=== PATIENT | female | born 1965 | race African-American/Black ===

== ENCOUNTER → 2018-03-01 | Outpatient (CLI) | payer OTHER ==
[~2018-03-01] MED LIST: AUGMENTIN 875875 MG PO; PROMETHAZINE-C120 ML PO
== END ==
LOC: CAT 14:37 → PUL 14:37
DX: Z13.6 Encounter for screening for cardiovascular disorders (principal); E78.00 Pure hypercholesterolemia, unspecified

== ENCOUNTER → 2018-03-17 | Outpatient (CLI) | payer OTHER ==
[~2018-03-17] MED LIST changes: +CO Q-10100 MG PO; +CRESTOR10 MG PO; +NEURONTIN 300300 M1 PO; +PROBIOTIC1 EAC1 PO; +TURMERIC500 M2 PO
--- NOTE | 2018-05-11 15:57 | PFR/MVV ---
[facility] [place] [address] [place] [address] PULMONARY FUNCTION MVV/REPORT Name: DEREK KEARNS Room #: REG [facility] Ubaldo.#: [id number] Admission: 03/17/18 Attend Phys: Stevan Fernández MD Discharge: Date of : 69 Report #: [id number] THIS REPORT FOR: //name// >> SPIROMETRY: (BTPS) Height: 67 in cm Weight: 257 lbs kg Exam Date: 03/17/18 PRE-RX POST-RX PRED BEST %PRED BEST %PRED %CHG FVC LITERS . 3.51 . 3.74 . 106 . 3.68 . 105 . -1 FEV1 LITERS . 2.87 . 2.96 . 103 . 3.05 . 106 . 3 FEV1/FVC % . 83 . 79 . 95 . 83 . 100 . 5 DCD22-70% L/Sec . 3.15 . 2.98 . 95 . 3.55 . 113 . 19 PEF L/SEC . 6.35 . 7.35 . 116 . 5.96 . 94 . -19 FEF50/FIF50 UNITLESS . <1.00 . 1.77 . . 2.39 . . 35 MVV L/Min . 100 . 49 . 49 f 1/Min . . 150 . >> LUNG VOLUMES: (BTPS) PRE-RX POST-RX PRED AVG %PRED AVG %PRED %CHG VC Liters . 3.51 . 3.74 . 106 . . . TLC Liters . 5.58 . 4.89 . 88 . . . RV Liters . 2.00 . 1.15 . 58 . . . RV/TLC % . 35 . 24 . 67 . . . FRC PL Liters . 2.33 . 1.71 . 73 . . . FRC N2 Liters . 2.33 . . . . . ERV Liters . . 0.56 . . . . IC Liters . . 3.09 . . . . >> DIFFUSION: DLCO ml/Min/mmHg . . . . . . DL Khalida ml/Min/mmHg . . . . . . DLCO/VA ml/Min/mmHg . . . . . . VA Liters . . . . . . COMMENTS: COMMENTS: >> RESISTANCE: [facility] [address] [place] [address] PULMONARY FUNCTION MVV/REPORT Name: DEREK KEARNS Room #: REG CARLITA Dennison#: [id number] Admission: 03/17/18 Attend Phys: Stevan Fernández MD Discharge: Date of : 69 Report #: [id number] PRE-RX PRED AVG %PRED Raw Total cmH20/L/Sec . . 5.98 . Raw Insp cmH20/L/Sec . . 7.14 . Raw Exp cmH20/L/Sec . . 10.28 . Raw cmH20/L/Sec . 1.68 . 2.46 . 146 Gaw L/Sec/cmH20 . 0.558 . 0.407 . 73 sRaw cmH20 Sec . 3.90 . 5.50 . 141 sGaw l/cmH20 Sec . 0.256 . 0.182 . 71 Vtq Liters . . 2.24 . # = OUTSIDE 95% CONFIDENCE INTERVAL CALIBRATION: PRED: 3.00 ACTUAL: EXP 3.01 INSP 3.02 [facility]-OL10-06 [facility]-05 N-1804-4 >> INTERPRETATION/IMPRESSION: CC: Stevan Fernández DATE OF SERVICE: 03/17/2018 PULMONARY FUNCTION STUDIES FINDINGS: FEV1 is 2.96 (103%), FVC is 3.74 liters (106%) and FEV1/FVC ratio 79%. There is no response to bronchodilator therapy. LUNG VOLUMES: Total lung capacity is 4.89 liters (88%). Diffusion capacity is not completed. IMPRESSION: Pulmonary function studies are consistent with normal pulmonary function. <ELECTRONICALLY SIGNED> By: Enrique Maier MD 05/11/18 1557 Enrique Maier MD /nt
== END ==
LOC: MRI 10:11
DX: M47.816 Spondylosis without myelopathy or radiculopathy, lumbar region (principal); M51.27 Other intervertebral disc displacement, lumbosacral region; M48.062 Spinal stenosis, lumbar region with neurogenic claudication; D86.9 Sarcoidosis, unspecified

== ENCOUNTER → 2018-04-07 | Outpatient (CLI) | payer OTHER ==
[~2018-04-07] VITALS: Ht 167.6 cm; Wt 117.5 kg
--- NOTE | ~2018-04-07 | HPC ---
[facility] [place] [place] [address] PAIN MANAGEMENT CONSULTATION Name: DEREK KEARNS Room #: REG [facility] Jesi#: [id number] Admission: 04/07/18 Attend Phys: Mookie Diamond MD Discharge: Date of : 69 Report #: [id number] THIS REPORT FOR: //name// CC: Mookie Fernández DATE OF SERVICE: 04/07/2018 CHIEF COMPLAINT: Back and left leg pain. HISTORY OF PRESENT ILLNESS: The patient is a 52-year-old black female, who has been referred to the pain clinic for evaluation of back pain. She states that she is experiencing pain, which is radiating down the lower portion of her back and down into her left leg and into her foot. She describes it as a burning, aching, throbbing, sharp pain with numbness, tingling, and stabbing sensation. She rates it as a 10/10. She notes that the pain is exacerbated while standing, walking, and with activities of daily living such as sitting. Pain improves somewhat with use of medication and with lying down. She has not had back surgery before. The patient also has pain and discomfort in her neck with pain that radiates into the left shoulder and radiates down into her hand. She has not had cervical treatment at this juncture. She feels that the pain involves both of her shoulders. Left shoulder and elbow are most problematic. She states that it feels like she has pulled a muscle in the left side. PAST MEDICAL HISTORY: She has joint disease/arthritis, sarcoidosis involving the lungs. PAST SURGICAL HISTORY: She has tonsillectomy in 1972, tubal ligation in 01/1984, laparoscopic knee surgery in 2008 and 2011, and biopsy in 04/2006. MEDICATIONS: The patient is on Neurontin 300 mg, Crestor 10 mg, turmeric root extract 500 mg, CoQ10 100, and probiotic lactobacillus acidophilus. ALLERGIES: THE PATIENT IS ALLERGIC TO SULFA. 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 She is working at this juncture. REVIEW OF SYSTEMS: Questionnaire, generally in good health, recent weight change, night sweats, fatigue, wears glasses, blurred vision, palpitations, shortness of breath while lying flat, numbness and tingling sensation in the lower extremity as well as in the upper extremity. PAIN CLINIC ASSESSMENT AND PQRS: [place] [address] PAIN MANAGEMENT CONSULTATION Name: DEREK KEARNSETTE Room #: REG CARLITA Dennison#: [id number] Admission: 04/07/18 Attend Phys: Mookie Diamond MD Discharge: Date of : 69 Report #: [id number] 1. History of osteoarthritis. The patient is not being treated for osteoarthritis. The patient is not being treated for rheumatoid arthritis. 2. Pain intensity is 10/10. 3. Fall risk. The patient has not fallen in the last 3 months. 4. Blood thinner. The patient is not on a blood thinning medication. 5. History of hypertension. The patient is not being treated for hypertension. 6. Opioids greater than 6 weeks. The patient is not on a routine opioid regimen. 7. Risk assessment tool, low risk for opioid use 3/0. 8. Functional assessment tool. 9. Recreational drug use. The patient denies use of recreational drugs. 10. Tobacco: The patient continues to smoke, has smoked for a total of about 25 years, 1 pack a day at this juncture. We discussed the benefits of smoking cessation with the patient. 11. Alcohol: The patient drinks about 1-2 alcoholic beverages on rare occasion. PHYSICAL EXAMINATION: GENERAL: The patient is a well-developed, well-nourished black female. She appears her stated age. She is alert and oriented x 3. Affect is appropriate. Speech is fluent. Height is 5 feet 6 inches, weight is 259 pounds, and BMI is 41.8. VITAL SIGNS: Blood pressure is 135/80, pulse is 70, respiratory rate is 14, and room air saturation is 100%. HEENT: Normocephalic, atraumatic. Extraocular eye muscles intact. Sclerae nonicteric. Mucous membranes are moist. Hearing is within normal limits. NECK: The patient has complaints of pain in the upper cervical area with pain in the left posterior neck area with pain that is radiating down into the left arm and involving the left hand. Muscle strength is judged to be 5/5 for the major muscle groups in the upper extremity. Muscle strength is judged to be 5-/5 for the lower extremity. The patient has pain and discomfort in the low back area and in the left and right paraspinus area with pain that is radiating down into the left leg with numbness, tingling, and weakness involving the left foot area. LABORATORY DATA: MRI of the lumbar spine dated 03/17/2018: 1. L3-L4: Broad-based posterior disk bulge, bilateral facet hypertrophy with ligamentum flavum hypertrophy, no significant central canal stenosis or neural foraminal narrowing. 2. L4-L5: Broad-based posterior disk bulge, bilateral facet hypertrophy and ligamentum flavum hypertrophy, resulting in moderate central canal stenosis with AP diameter of the central canal of 8.9 mm and mild bilateral neural foraminal narrowing. 3. L5-S1: Broad-based posterior disk bulge and bilateral facet hypertrophy. No significant central canal stenosis and moderate bilateral neural foraminal narrowing. L5 vertebral body lesion, which may represent bone cyst or atypical [facility] [address] [place] [address] PAIN MANAGEMENT CONSULTATION Name: DEREK KEARNS Room #: REG CARLITA Jesi#: [id number] Admission: 04/07/18 Attend Phys: Mookie Diamond MD Discharge: Date of : 69 Report #: [id number] hemangioma. 4. Mild bilateral neural foraminal narrowing at L4-L5 and moderate bilateral neural foraminal narrowing at L5-S1. IMPRESSION: 1. Lumbar radiculopathy. 2. Cervical radiculopathy. 3. Joint disease/arthritis. 4. Sarcoidosis involving the lungs. RECOMMENDATIONS: We have discussed treatment options with the patient and her significant other. Risks and benefits of an epidural steroid injection were discussed. Possible complications of an injection, which could include but are not limited to infection, increased muscle soreness, headache, worsening of pain, no improvement in pain and the patient elects to proceed. PROCEDURE NOTE: The patient was taken to the procedure area. She was assisted in getting on the examination table. A pillow was placed under the abdomen to bolster and improved positioning. The patient's back was sterilely prepped with a Betadine solution. Anterior and posterior as well as lateral imaging were conducted using fluoroscopy. The patient's back was infiltrated with 0.25% bupivacaine using a 25-gauge needle. A left paracentral directed 18-gauge Tuohy was used. After appropriate placement, a total of 80 mg Depo-Medrol, 40 mg of triamcinolone, and 2 mL of 0.25% bupivacaine was injected. The patient tolerated the procedure well. There were no complications. She remained in the pain clinic for an appropriate amount of time. She will follow up in the future as needed. The patient's pain decreased from 10 to 8 at the time of discharge. A total of 13 seconds of fluoro time was used. We would like to thank you for letting us to participate in her care. We hope she continues to improve. <ELECTRONICALLY SIGNED> By: Mookie Diamond MD 04/12/18 [id number] Mookie Diamond MD /[facility]
[2018-04-07 12:37] VITALS: BP 135/80
== END | disposition home or self-care (01) ==
LOC: PAIN 08:36
DX: M54.16 Radiculopathy, lumbar region (principal); M54.12 Radiculopathy, cervical region; M19.90 Unspecified osteoarthritis, unspecified site; D86.9 Sarcoidosis, unspecified; M99.73 Connective tissue and disc stenosis of intervertebral foramina of lumbar region; I10 Essential (primary) hypertension; F17.210 Nicotine dependence, cigarettes, uncomplicated; Z90.89 Acquired absence of other organs; Z98.890 Other specified postprocedural states; Z79.899 Other long term (current) drug therapy; Z88.2 Allergy status to sulfonamides

== ENCOUNTER → 2020-12-26 | Outpatient (CLI) | payer OTHER ==
[~2020-12-26] MED LIST changes: +NABUMETONE 500500 M2 PO
== END ==
LOC: LAB 10:42
PROVIDERS: ATTEND Student in an Organized Health Care Education/Training Program
DX: Z01.812 Encounter for preprocedural laboratory examination (principal); Z20.822 Contact with and (suspected) exposure to COVID-19

== ENCOUNTER 2020-12-30 06:11 | Observation (INO) | payer OTHER ==
[~2020-12-30] VITALS: Ht 170.2 cm; Wt 121.6 kg
[2020-12-30 07:00] VITALS: BP 140/79
[2020-12-30 07:29] LABS: HEMATOCRIT 39.8 % (37.0-47.0); HEMOGLOBIN 13.6 gm/dL (12.0-15.0); MCH 31.8 pg (26.0-34.0); MCHC 34.2 g/dL (28.0-37.0); MCV 93.1 fL (80.0-100.0); RBC 4.27 mil/uL (4.20-5.00); RDW 13.1 % (10.5-14.5); WBC 5.5 thou/uL (4.0-11.0)
[2020-12-30 07:36] LABS: CALCIUM 8.8 mg/dL (8.5-10.1); CREATININE 0.9 mg/dL (0.6-1.0); POTASSIUM 4.2 mmol/L (3.5-5.1)
[2020-12-30 07:42] LABS: ALBUMIN 3.4 g/dL (3.4-5.0); TOTAL BILIRUBIN 0.4 mg/dL (0.2-1.0); TOTAL PROTEIN 6.8 g/dL (6.4-8.2)
[2020-12-30] MEDS ORDERED: HYDROCODON-ACE1 EAC7 PO (08:51)
[2020-12-30] MEDS ORDERED: STIMULANT LAXA1 EACH PO (08:51)
[2020-12-30] MEDS ORDERED: MIRALAX17 GM PO (08:51)
--- NOTE | 2020-12-30 11:17 | EKG ---
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 Ed Arce MD, FACSandi /EPI
--- NOTE | 2020-12-30 15:00 | EKG ---
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 : 1965 Requested By: Jeannie Alvarez Order Number: [id number] : Ed Arce Measurements Intervals [place] Rate: 64 P: 30 PA: 156 QRS: 33 QRSD: 88 T: 7 QT: 431 QTc: 445 Interpretive Statements Sinus rhythm Low voltage, precordial leads Compared to ECG 12/30/2020 10:16:25 Low QRS voltage now present Atrial abnormality no longer present Left ventricular hypertrophy no longer present Myocardial infarct finding no longer present Electronically Signed On 12-30-2020 15:00:48 CDT by Ed Arce [email or web address] <ELECTRONICALLY SIGNED> By: Ed Arce MD, [facility] 12/30/20 1500 103 103 Ed Arce MD, [facility] /EPI
--- NOTE | 2020-12-30 15:16 | NUR ---
PT ORIENTED TO ROOM AND UNIT, BED LOW AND LOCKED, SIDE RAILS UPX3, CALL LIGHT IN REACH, LAP SITES X3 CDI. TELE APPLIED. WILL CONTINUE TO ASSESS.
[2020-12-30 16:00] VITALS: BP 140/82
--- NOTE | 2020-12-30 16:34 | NUR ---
PT ORIENTED TO ROOM AND UNIT, BED LWO AND LOCKED, SIDE RAILS UPX3, CALL LIGHT IN REACH, TELE APPLIED, BED ALARM IS ON. WILL CONTINUE TO ASSESS.
[2020-12-30 19:20] VITALS: BP 132/74
[2020-12-31 03:50] VITALS: BP 126/71
--- NOTE | 2020-12-31 04:42 | NUR ---
PT RESTING QUIETLY IN ROOM, VSS, UP WITH SBA TO BR, PRN PAIN MEDS GIVEN FOR NUNEZ AND ABD PAIN ICE PACK ALSO USED, NPO AFTER MID NOC FOR STRESS TEST THIS AM. ABD LAP SITES REMAIN CDI, WILL CON'T TO MONITOR PER PPOC.
[2020-12-31 08:10] VITALS: BP 133/78
[2020-12-31 15:28] VITALS: BP 154/82
--- NOTE | 2020-12-31 15:51 | 2DMMODE ---
[facility] [place] [address] 2 D/M-MODE ECHOCARDIOGRAM Name: DEREK KEARNS Room #: 208-P ADM Jeannie M.R.#: [id number] Admission: 12/30/20 Attend Phys: Amadou Ruiz MD Discharge: Date of : 69 Report #: [id number] THIS REPORT FOR: cc: Stevan Fernández MD, Neal A. MD Lammoglia, Francisco J. MD ~ APPROVED REPORT Study performed: 12/31/2020 14:18:09 EXAM: Comprehensive 2D, Doppler, and color-flow Echocardiogram Patient Location: Bedside Room #: 208 Status: routine BSA: 2.29 HR: 63 bpm BP: 133/78 mmHg Rhythm: NSR Other Information Study Quality: Good Indications Chest Pain 2D Dimensions IVSd: 8.37 (7-11mm) LVOT Diam: 22.20 (18-24mm) LVDd: 55.94 mm PWd: 7.99 (7-11mm) Ascending Ao: 29.33 (22-36mm) LVDs: 35.64 (25-40mm) Left Atrium: 41.26 (27-40mm) Aortic Root: 32.13 mm IVC: 16.00 mm Volumes Left Atrial Volume (Systole) Single Plane 4CH: 38.12 mL Single Plane 2CH: 29.07 mL LA ESV Index: 16.00 mL/m2 Aortic Valve AoV Peak George.: 1.45 m/s AO Peak Gr.: 8.36 mmHg LVOT Max P.25 mmHg LVOT Max V: 1.25 m/s JENIFER Vmax: 3.35 cm2 [facility] [address] [place] [address] 2 D/M-MODE ECHOCARDIOGRAM Name: SOMDEREK MAXIMO Room #: 208-P [facility] .R.#: [id number] Admission: 12/30/20 Attend Phys: Amadou Ruiz, Discharge: Date of : 69 Report #: [id number] Mitral Valve E/A Ratio: 1.5 MV Decel. Time: 248.22 ms MV E Max George.: 0.96 m/s MV A George.: 0.62 m/s MV PHT: 71.98 ms IVRT: 69.20 ms Pulmonary Valve PV Peak George.: 1.09 m/s PV Peak Gr.: 4.77 mmHg Pulmonary Vein P Vein S: 0.56 m/s P Vein A: 0.26 m/s P Vein D: 0.38 m/s P Vein A Dur.: 120.0 msec P Vein S/D Ratio: 1.47 Left Ventricle The left ventricle is normal size. There is normal LV segmental wall motion. There is normal left ventricular wall thickness. Left ventricular systolic function is normal. The left ventricular ejection fraction is within the normal range. LVEF is 60-65%. The left ventricular diastolic function is normal. Right Ventricle The right ventricle is normal size. The right ventricular systolic function is normal. Atria The left atrium size is normal. The right atrium size is normal. Aortic Valve The aortic valve is normal in structure. No aortic regurgitation is present. There is no aortic valvular stenosis. Mitral Valve The mitral valve is normal in structure. Trace mitral regurgitation. No evidence of mitral valve stenosis. Tricuspid Valve The tricuspid valve is normal in structure. There is no tricuspid valve regurgitation noted. Pulmonic Valve The pulmonary valve is normal in structure. There is no pulmonic valvular regurgitation. [facility] [address] [place] [address] 2 D/M-MODE ECHOCARDIOGRAM Name: DEREK KEARNS MAXIMO Room #: 208-P [facility] IN M.R.#: [id number] Admission: 12/30/20 Attend Phys: Amadou Ruiz, Discharge: Date of : 69 Report #: [id number] Great Vessels The aortic root is normal in size. IVC is normal in size and collapses >50% with inspiration. Pericardium There is no pericardial effusion. <Conclusion> The left ventricle is normal size. There is normal LV segmental wall motion. LVEF is 60-65%. The left atrium size is normal. The aortic valve is normal in structure. The mitral valve is normal in structure. Trace mitral regurgitation. The tricuspid valve is normal in structure. The pulmonary valve is normal in structure. The aortic root is normal in size. There is no pericardial effusion. <ELECTRONICALLY SIGNED> By: Boom Cosby MD 12/31/20 1550 1550 1550 Boom Cosby MD /INF
--- NOTE | 2020-12-31 16:48 | NUR ---
ASSESSMENT CHARTED - MEDS PER MARIAM BYRD DIET AND FLUIDS. GIVEN IBPROFEN FOR CO'S OF HEADACHE WITH GOOD EFFECT. PT HAD ECHO AND STRESS TEST COMPLETED - SEEN BY CARDIOLOGY AND ABLE TO BE DISCHARGTED - HOME THIS AFTERNOON - INSTRUCTION RE HOME MEDS/ CARE AND FOLLOW UP GIVEN TO PATIENT. STATED UNDERSTANDING OF INSTRUCTION GIVEN. NO CO'S AT TIME OF D/C. LEFT UNIT VIA WHEEL CHAIR - HOMNE VIA PVT VEHICLE ACCOAPNIED BY SIG OTHER.
== END 2020-12-31 16:51 | disposition home or self-care (01) ==
LOC: OR 06:11 → TBA 06:12 → OR 11:40 → 2N 15:10 → OR 15:58 → 2N 15:59
PROVIDERS: ADMIT Surgery; ATTEND Surgery
DX: K80.20 Calculus of gallbladder without cholecystitis without obstruction (principal); J06.9 Acute upper respiratory infection, unspecified; E66.9 Obesity, unspecified; F17.210 Nicotine dependence, cigarettes, uncomplicated; Z68.41 Body mass index [BMI] 40.0-44.9, adult; Z79.899 Other long term (current) drug therapy; Z88.2 Allergy status to sulfonamides
CPT/HCPCS: 50010; 50101; 50411; 50555; 52265; 52266; 53307; 53310; 53312; 54022; 54118; 55245; 56462; 56525; 56526; 58574; 58910; 62110; 62900; 70005